=== PATIENT | female | born 1945 | race Caucasian/White ===

== ENCOUNTER 2016-12-04 18:56 | Emergency (ER) | payer MEDICARE ==
[2016-12-04] MEDS ORDERED: methylPREDNISolone 125 MG* 2 ML VIAL IV ONE (19:34)
[2016-12-04] MEDS ORDERED: Famotidine IV* 10 MG/ML 2 ML (20 mg) IV SLOW PU ONE (19:34)
[2016-12-04] MEDS ORDERED: NS 0.9% 1000 ML* 1,000 ML IV ONE (19:36)
[2016-12-04] MEDS ORDERED: EPINEPHrine AMP 1 MG/ML SUBCUT ONE (20:28)
[2016-12-04 21:47] LABS: Hematocrit 41 % (35-47); Hemoglobin 14.1 g/dl (12.0-16.0); Mean Corpuscular HGB Conc 34 g/dl (31-36); Mean Corpuscular Hemoglobin 30 pg (27-31); Mean Corpuscular Volume 88 fL (80-97); Mean Platelet Volume 9 um3 (7.4-10.4); Red Blood Count 4.68 10^6/ul (4.0-5.4); Red Cell Distribution Width 13 % (10.5-15); White Blood Count 10.6 10^3/ul (3.5-10.8)
[2016-12-04 21:50] LABS: Add Diff/Slide Review? Slide Review Added; Comments Flag Yes
--- NOTE | 2016-12-04 21:57 | ED ---
Vania Claire Thomas, scribed for Ofelia Mcbride MD on 12/04/16 at 1931 . Allergic Reaction/Systemic - HPI Summary HPI Summary: The pt is a 71 y/o F BIB EMS c/o an allergic reaction s/p being stung by a bee to her left lorew flank today at 17:30. Per EMS, she took two Epi-Pens prior to arrival and was given an additional one by EMS. She also two two Benadryl pills of unknown dosage and was given Benadryl 50mg by EMS. She was also given dexamethasone and Duo-Neb by EMS. Pt additionally c/o weakness and urticaria to the bee sting area. Pt denies throat tightening. PMHx: GERD, bee allergy. SHx: no smoking, no alcohol use. - History of Current Complaint Chief Complaint: EDAllergicReaction Hx Obtained From: Patient, EMS Onset/Duration: Sudden Onset, Started minutes ago - today at 17:30 Timing: Constant Pain Intensity: 0 Pain Scale Used: 0-10 Numeric Aggravating Factor(s): Nothing Alleviating Factor(s): OTC Meds, Antihistamines, Epinephrine Associated Signs And Symptoms: Negative: Syncope, Throat Tightening - Allergies/Home Medications Allergies/Adverse Reactions: Allergies Allergy/AdvReac Type Severity Reaction Status Date / Time Acetaminophen [From Percocet] Allergy Vomiting Verified 12/20/13 17:54 Bee Venom Allergy Hives Verified 12/20/13 17:54 Oxycodone [From Percocet] Allergy Vomiting Verified 12/20/13 17:54 PMH/Surg Hx/FS Hx/Imm Hx Previously Healthy: No Endocrine/Hematology History: Denies: Hx Diabetes, Hx Thyroid Disease, Hx Anemia Cardiovascular History: Reports: Hx Hypertension Denies: Hx Pacemaker/ICD Respiratory History: Denies: Hx Asthma, Hx Chronic Obstructive Pulmonary Disease (COPD) GI History: Denies: Hx Jaundice, Hx Ulcer Musculoskeletal History: Reports: Hx Osteoporosis Sensory History: Denies: Hx Hearing Aid Psychiatric History: Denies: Hx Panic Disorder - Cancer History Hx Chemotherapy: No Hx Radiation Therapy: No - Surgical History Surgery Procedure, Year, and Place: 04/13/2006 LT BREAST EXCISIONAL BX BENIGN. RT KNEE - REPAIR - CARTILAGE. GALLBLADDER REMOVED Infectious Disease History: No Infectious Disease History: Denies: Hx Hepatitis, Hx Human Immunodeficiency Virus (HIV), Traveled Outside the [place] in Last 30 Days - Family History Known Family History: Positive: Cardiac Disease - Social History Alcohol Use: Rare Substance Use Type: Reports: None Smoking Status (MU): Never Smoked Tobacco Review of Systems Positive: Other - POS: allergic reaction to bee sting. Negative: Fever Negative: Other - NEG: throat tightening Positive: Other - POS: urticarial area to left loewr flank that is 3cm. Positive: Weakness All Other Systems Reviewed And Are Negative: Yes Physical Exam Triage Information Reviewed: Yes Vital Signs On Initial Exam: Initial Vitals Temp Pulse Resp BP Pulse Ox 97.8 F 109 16 186/91 100 12/04/16 19:00 12/04/16 19:00 12/04/16 19:00 12/04/16 19:00 12/04/16 19:00 Vital Signs Reviewed: Yes Appearance: Positive: Well-Appearing, No Pain Distress Skin: Positive: Warm, Skin Color Reflects Adequate Perfusion, Other - She has urticaria to her left lower flank that measures 3cm Eyes: Positive: EOMI, VELMA ENT: Positive: Pharynx normal, TMs normal Neck: Positive: Supple, Nontender Respiratory/Lung Sounds: Positive: Clear to Auscultation, Breath Sounds Present. Negative: Rales, Rhonchi, Wheezes Cardiovascular: Positive: RRR. Negative: Murmur, Rub, Other - NEG: gallop Abdomen Description: Positive: Nontender, Soft. Negative: Distended, Guarding, Other: - NEG: rebound Bowel Sounds: Positive: Present Musculoskeletal: Positive: Strength/ROM Intact. Negative: Edema Left, Edema Right Neurological: Positive: Sensory/Motor Intact, Alert, Oriented to Person Place, Time, CN Intact II-III Psychiatric: Positive: Affect/Mood Appropriate Diagnostics - Vital Signs Vital Signs Temp Pulse Resp BP Pulse Ox 12/04/16 19:07 103 16 99 12/04/16 19:00 97.8 F 109 16 186/91 100 - Laboratory Lab Results: Lab Results 12/04/16 Range/Units 21:39 WBC 10.6 (3.5-10.8) 10^3/ul RBC 4.68 (4.0-5.4) 10^6/ul Hgb 14.1 (12.0-16.0) g/dl Hct 41 (35-47) % MCV 88 (80-97) fL MCH 30 (27-31) pg MCHC 34 (31-36) g/dl RDW 13 (10.5-15) % Plt Count 164 (150-450) 10^3/ul MPV 9 (7.4-10.4) um3 Neut % (Auto) 86.6 H (38-83) % Lymph % (Auto) 10.6 L (25-47) % Mcculloch % (Auto) 2.4 (1-9) % Eos % (Auto) 0.1 (0-6) % Baso % (Auto) 0.3 (0-2) % Absolute Neuts (auto) 9.2 H (1.5-7.7) 10^3/ul Absolute Lymphs (auto) 1.1 (1.0-4.8) 10^3/ul Absolute Monos (auto) 0.3 (0-0.8) 10^3/ul Absolute Eos (auto) 0 (0-0.6) 10^3/ul Absolute Basos (auto) 0 (0-0.2) 10^3/ul Absolute Nucleated RBC 0.01 10^3/ul Nucleated RBC % 0.1 Result Diagrams: 12/04/16 21:39 Lab Statement: Any lab studies that have been ordered have been reviewed, and results considered in the medical decision making process. - EKG 21:04 Cardiac Rate: NL - 102 BPM EKG Interpretation: ST Anterolateral cues. These are not new. Diffuse Q waves EKG Comparison: Other - Unchanged from 04/11/09. Re-Evaluation - Re-Evaluation First Eval Re-Evaluation Time: 20:00 Change: Worse Comment: The patient is having difficulty swallowing. Her tongue is a bit thicker. She requires another dose of Epi. Allergic Reaction Course/Dx - Course Course Of Treatment: 71 yo female who required 3 doses of epi (2 of her own and one from the paramedics) for anaphylaxis from a bee sting. She reported after an hour of being here difficulty swallowing and a 4th dose was given, case was discussed with Dr. Coppola and pt was to be brought in for observation - Diagnoses Provider Diagnoses: Anaphylactic reaction - Provider Notifications Discussed Care Of Patient With: Leighton Coppola Time Discussed With Above Provider: 21:00 Instructed by Provider To: Other - I consulted with Dr. Chanko, addiction professional, who will admit the patient. Discharge - Discharge Plan Condition: Fair Disposition: ADMITTED TO [facility] Prescriptions: Epinephrine [Epipen 2-Ismael] 0.3 mg IM ONCE PRN #1 inj PRN Reason: Allergy Symptoms predniSONE TAB* [Deltasone TAB*] 50 mg PO DAILY #4 tab Referrals: Jeniffer Crews MD [Primary Care Provider] - The documentation as recorded by the Vania plummer Thomas accurately reflects the service I personally performed and the decisions made by me, Ofelia Mcbride MD.
[2016-12-04 22:04] LABS: Albumin 4.3 g/dL (3.2-5.2); BUN/Creatinine Ratio 20.6 (8-20); Calcium 9.2 mg/dL (8.6-10.3); EGFR African American 120.1 (>60); EGFR Non-African American 93.4 (>60); Globulin 2.8 g/dL (2-4); Potassium 3.1 mmol/L (3.5-5.0); Total Bilirubin 0.5 mg/dL (0.2-1.0); Total Protein 7.1 g/dL (6.4-8.9)
[2016-12-04 22:53] VITALS: BP 127/74
--- NOTE | 2016-12-05 01:41 | CONS ---
CC: Dr. Crews; Dr. Mcclain, [facility] * MEDICINE CONSULTATION REPORT: DATE OF CONSULT: 12/04/16 - EMERGENCY DEPT PRIMARY CARE PROVIDER: Dr. Crews. REQUESTING PROVIDER: Dr. Ofelia Mcbride. PROVIDER: Raquel Apodaca NP ATTENDING PHYSICIAN: Dr. Leighton Coppola (as dictated by Raquel Apodaca NP). REASON FOR CONSULTATION: Evaluation for admission. HISTORY OF PRESENT ILLNESS: Ms. Edouard is a 71-year-old female who was in good health up until today when the patient felt a bee crawl under her shirt and sting her. She was stung on the left abdomen. She reports longstanding history of BEE STING allergies with severe reaction. She is currently undergoing desensitization with her door glass installer, Dr. Mcclain, and is . Following the bee sting, the patient gave herself epi via the pen and stated that she felt better. She also took some children's Benadryl. After a short time, she started to feel worse again and gave herself a second EpiPen shot and called EMS services. They brought her to the hospital. She has received a total dose of 4 epi shots as well as famotidine and Solu-Medrol. The patient has been stable on telemetry, although is mildly tachycardic secondary to the EpiPen injections. She denies any pain, respiratory distress. There is no audible wheezing, or stridor. She feels better. PAST MEDICAL HISTORY: Includes hypertension, osteoarthritis. PAST SURGICAL HISTORY: Includes cholecystectomy, left breast cyst removal, right knee washout, and right wrist cyst removal. HOME MEDICATIONS: Include valsartan, but the patient is unsure of dose. ALLERGIES: Include ACETAMINOPHEN, BEE VENOM, and OXYCODONE. FAMILY HISTORY: Reviewed and noncontributory. SOCIAL HISTORY: The patient reports rare alcohol use and denies any history of tobacco or illicit drug use. 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 She is . Her , Kin Edouard, is her emergency contact, but she would like to list her friend, Christa Aguilar, as her surrogate decision maker, and she can be reached at . REVIEW OF SYSTEMS: As per HPI, otherwise all those not mentioned are negative. PHYSICAL EXAM: General: Ms. Edouard is a well-developed, well-nourished female , who is sitting up in the ED stretcher, in no acute distress. Vital Signs: Temperature 97.8, heart rate 106, respiratory rate 18, blood pressure 127/74, and O2 saturation is 96% on room air. HEENT: Head is atraumatic, normocephalic. Face is symmetrical. Pupils are equal, round, and reactive to light. Extraocular movements are intact. Oral mucosa appears moist. There is no oropharyngeal erythema. Neck is supple. No lymphadenopathy appreciated. No stridor noted. Cardiac: S1 and S2 heart sounds. Regular rate and rhythm. Rate is mildly tachycardic. No peripheral edema noted. No murmurs, rubs, or gallops noted. Respiratory: Lungs are clear to auscultation. There is no accessory muscle use. Abdomen is soft, nontender, nondistended. Bowel sounds are present. Musculoskeletal: The patient moves all extremities and has full range of motion to all extremities. No clubbing or cyanosis noted. Skin: The site of the bee sting shows a small puncture wound with no surrounding wheels or erythema. No rashes noted. The patient's skin is warm, dry. Neuro: Cranial nerves II through XII are grossly intact. Sensation is intact to light touch to upper and lower extremities. The patient moves all extremities. Psych : She is alert and oriented x3. Affect is appropriate. ASSESSMENT AND PLAN: Ms. Edouard is a 71-year-old female who is status post bee sting with allergic reaction. She has received epi, Solu-Medrol, Pepcid with good effect. RECOMMENDATIONS: Ms. Edouard was offered further observation overnight for further monitoring of her symptoms and to monitor for return of symptoms following administration of EpiPen. The patient states that she is feeling fine and declines to have any further monitoring. She would like to go home now. The patient was recommended to stay perhaps for an additional hour to make sure that her symptoms do not return. If that is the case, the patient would be brought in under observation status for further monitoring and treatment. She may benefit from additional steroids. Currently, she appears comfortable. She is not in any acute distress and I did not see any signs of urticaria to the patient's abdomen and surrounding skin where she was stung. Case was discussed with the ER attending physician, who agrees to further monitor the patient and discharge her to home. Again, if any further assistance, please feel free to contact us. Thank you for this consultation. TIME SPENT: Approximately 45 minutes were spent in consultation for this patient. RAQUEL APODACA NP [id number]/GÉNESIS #: [id number] REMIGIO
== END 2016-12-04 23:37 | disposition short-term general hospital (02) ==
LOC: ED 18:56
DX: T78.2XXA Anaphylactic shock, unspecified, initial encounter (principal)
CPT/HCPCS: 36415; 80053; 84484; 85025; 93005; 96374; 96375; 99284; J0171; J2930

== ENCOUNTER 2018-10-31 15:55 | Emergency (ER) | payer MEDICARE ==
--- NOTE | 2018-10-31 16:02 | ED ---
Allergic Reaction/Systemic - HPI Summary HPI Summary: This patient is a 73 year old female presenting to [facility] with a chief complaint of allergeic reaction to bee venom protein. The patient was stung by a bee one hour BLADE FILER and began to experience difficulty speaking, throat tightening, and light-headedness. She says she normally experiences orthostatic sycope in this situation but received EMS treatment before this could occur. EMS administered 3 epipens, 50 mg benadryl and 10 mg decadron BLADE FILER. - History of Current Complaint Hx Obtained From: Patient Onset/Duration: Sudden Onset Timing: Lasting Hours Alleviating Factor(s): Antihistamines, Epinephrine Associated Signs And Symptoms: Positive: Hoarseness, Lightheadedness, Throat Tightening - Allergies/Home Medications Allergies/Adverse Reactions: Allergies Allergy/AdvReac Type Severity Reaction Status Date / Time bee venom protein (honey bee) Allergy Hives Verified 12/07/17 08:44 oxycodone [From Percocet] Allergy Vomiting Verified 12/09/17 08:35 PMH/Surg Hx/FS Hx/Imm Hx Endocrine/Hematology History: Denies: Hx Diabetes, Hx Thyroid Disease, Hx Anemia Cardiovascular History: Reports: Hx Hypertension Denies: Hx Pacemaker/ICD Respiratory History: Denies: Hx Asthma, Hx Chronic Obstructive Pulmonary Disease (COPD) GI History: Reports: Hx Gall Bladder Disease - GALLBLADDER STONES, GALLBLADDER REMOVED PER FAMILY Denies: Hx Jaundice, Hx Ulcer Musculoskeletal History: Reports: Hx Arthritis, Hx Osteoporosis Comment Only: Other Musculoskeletal History - KNEE SURGERY PER FAMILY APPROX. 10 YRS AGO Sensory History: Reports: Hx Contacts or Glasses - reading glasses Denies: Hx Hearing Aid Opthamlomology History: Reports: Hx Contacts or Glasses - reading glasses Neurological History: Comment Only: Other Neuro Impairments/Disorders - TEMPORARY AMNESIA PER PT.' S APPROX. 10 YRS AGO Psychiatric History: Denies: Hx Panic Disorder - Cancer History Hx Chemotherapy: No Hx Radiation Therapy: No - Surgical History Surgery Procedure, Year, and Place: 04/13/2006 LT BREAST EXCISIONAL BX BENIGN. RT KNEE - REPAIR - CARTILAGE. GALLBLADDER REMOVED Hx Anesthesia Reactions: No Infectious Disease History: Denies: Hx Hepatitis, Hx Human Immunodeficiency Virus (HIV) - Family History Known Family History: Positive: Cardiac Disease - Social History Alcohol Use: Rare Hx Substance Use: No Substance Use Type: Reports: None Hx Tobacco Use: No Smoking Status (MU): Never Smoked Tobacco Review of Systems Positive: Sore Throat - Throat tightening, difficulty speaking/horseness Neurological: Other - Light-headedness All Other Systems Reviewed And Are Negative: Yes Physical Exam - Summary Physical Exam Summary: Appearance: Well appearing, no pain distress Skin: warm, dry, reflects adequate perfusion Head/face: normal Eyes: EOMI, VELMA ENT: normal Neck: supple, non-tender Respiratory: CTA, breath sounds present Cardiovascular: RRR, pulses symmetrical Abdomen: non-tender, soft Musculoskeletal: normal, strength/ROM intact Neuro: normal, sensory motor intact, A&Ox3 Triage Information Reviewed: Yes Vital Signs On Initial Exam: Temp Pulse Resp BP Pulse Ox 98.5 F 105 20 123/63 100 10/31/18 15:56 10/31/18 17:56 10/31/18 16:04 10/31/18 17:56 10/31/18 17:56 Vital Signs Reviewed: Yes Allergic Reaction Course/Dx - Course Course Of Treatment: This patient is a 73 year old female presenting to [facility] with a chief complaint of allergeic reaction to bee venom protein. Patient received the necessary treatment by EMS BLADE FILER and she was kept here for observation. Patient has been stable and she is ready to go home. A plan for discharge was discussed with the patient and she was agreeable with this plan. - Diagnoses Provider Diagnoses: Allergic reaction Discharge - Sign-Out/Discharge Documenting (check all that apply): Patient Departure - Discharge Patient Received Moderate/Deep Sedation with Procedure: No - Discharge Plan Condition: Stable Disposition: HOME Patient Education Materials: General Allergic Reaction (ED) Referrals: Jeniffer Crews MD [Primary Care Provider] - 3 Days Additional Instructions: Follow up with your primary care provider in 3 days. - Attestation Statements Document Initiated by Scribe: Yes Documenting Scribe: Jarred Grace Provider For Whom Familiaibquan is Documenting (Include Credential): Ammon Glasgow MD Scribe Attestation: Jarred Claire scribed for Ammon Glasgow MD on 10/31/18 at 1815. Status of Scribe Document: Ready
[2018-10-31] MEDS ORDERED: NS 0.9% 1000 ML** 1,000 ML IV ONE (17:46)
[2018-10-31 17:58] VITALS: BP 123/63
== END 2018-10-31 18:19 | disposition home or self-care (01) ==
LOC: ED 15:55
DX: T63.441A Toxic effect of venom of bees, accidental (unintentional), initial encounter (principal); R42 Dizziness and giddiness; R49.0 Dysphonia; Y92.9 Unspecified place or not applicable; I10 Essential (primary) hypertension; Z88.5 Allergy status to narcotic agent; Z91.030 Bee allergy status
CPT/HCPCS: 96360; 99283

== ENCOUNTER 2019-06-09 05:30 | Observation (INO) | payer MEDICARE ==
--- OUTSIDE RECORDS SUMMARY | 2019-06-09 05:40 | XMS REPORT | Continuity of Care Document ---
:1945 External Reference #:[id number] Author Name DESMOND Best-Cde (transmitted by agent of provider Jennifer Rhodes) Address [address] [place] [address], [place] [address] Care Team Providers Name Role Phone Jeniffer Crews MD - Internal Care Team Information Lock Tender Medicine Problems Active Problems Provider Date Chest pain Jeramy Marquis M.D., [facility] Onset: 02/06/2014 Aortic valve disorder Jeramy Marquis M.D., [facility] Onset: 04/01/2017 Difficulty breathing Jeramy Marquis M.D., [facility] Onset: 02/16/2019 Electrocardiogram abnormal Jeramy Marquis M.D., [facility] Onset: 2018 Convalescence after surgery Best Townsend M.D. 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 Allergies, Adverse Reactions, Alerts Active Allergies Reaction Severity Comments Date Percocet SEVERE VOMITING 03/08/2012 Codeine 02/06/2014 Bee Sting 02/06/2014 Inactive Allergies NKDA 01/14/2007 Medications Active Medications SIG Qnty Indications Ordering Provider Date Aspirin Ec Low Dose 1 by mouth 90tabs Jeramy Marquis, 02/16/2019 81mg every day M.DMaria De Jesus, [facility] Tablets DR Calcium + Vitamin D3 2 by mouth Unknown every day [id number] Chewtabs Valsartan-Hydrochlorot 1 by mouth 90tabs Unknown hiazide every day 80-12.5mg Tablets Medications Administered in Office Medication SIG Qnty Indications Ordering Provider Date Technetium TC 99M Jeramy Marquis M.D., 03/13/2014 Tetrofosmin, Per Unit Dose FAC, FASNC Up To 40 Millicuries Injection Depomedrol 40MG Gopal Zuniga, 08/13/2009 Injection R.S.A.-O Immunizations CPT Code Status Date Vaccine Lot # [id number] Given 03/20/2009 Tdap - Tetanus/Diptheria/Acellular Pertussis [id number] Given 09/16/2003 Td (History By Patient) Vital Signs Date Vital Result Comment 05/20/2019 9:12am Height 61 inches 5'1" Weight 140.50 lb Heart Rate 101 /min BP Systolic 132 mmHg BP Diastolic 83 mmHg O2 % BldC Oximetry 98 % BMI (Body Mass Index) 26.5 kg/m2 04/19/2019 9:02am Height 61 inches 5'1" Weight 144.75 lb Heart Rate 72 /min BP Systolic 126 mmHg BP Diastolic 70 mmHg Respiratory Rate 12 /min Body Temperature 98.6 F Pain Level 2 BMI (Body Mass Index) 27.3 kg/m2 Results Description No Information Available Procedures Date Code Description Status 05/02/2019 03189 Stress Test Completed 02/23/2019 38745 ECHO Transthoracic, Real-Time 2D With Doppler And Color Completed Flow 02/23/2019 58400 ECHO Transthoracic, Real-Time 2D With Doppler And Color Completed Flow 02/16/2019 36165 EKG Tracing & Interpretation Completed 08/04/2018 94143144 Mammogram Completed 12/11/2007 07696182 Colonoscopy Completed Medical Devices Description No Information Available Encounters Type Date Location Provider Dx Diagnosis Office Visit 04/19/2019 [facility] Boni F M75.41 Impingement 8:30a at Darrell Torres MD syndrome of right shoulder M75.42 Impingement syndrome of left shoulder M75.51 Bursitis of right shoulder M75.52 Bursitis of left shoulder S46.011A Strain of musc/tend the rotator cuff of right shoulder, init S46.012A Strain of musc/tend the rotator cuff of left shoulder, init M25.552 Pain in left hip M25.551 Pain in right hip Office Visit 02/16/2019 [facility] R94.31 Abnormal 11:30a [facility] Marquis, electrocardiogram Advanced [facility] Professional FAC, [facility] [ECG] [EKG] R06.00 Dyspnea, unspecified Assessments Date Code Description Provider 05/20/2019 Z01.419 Encounter for gynecological Dara Mendoza [employer] examination (general) (routine) without abnormal findings 05/20/2019 Z12.11 Encounter for screening for malignant Dara Mendoza, [employer] neoplasm of colon 05/20/2019 N95.9 Unspecified menopausal and Dara Mendoza, [employer] perimenopausal disorder 05/02/2019 R06.00 Dyspnea, unspecified Jeramy Marquis M.D., [facility], [facility] 05/02/2019 R94.31 Abnormal electrocardiogram [ECG] Jeramy Marquis M.D., [EKG] [facility], [facility] 04/19/2019 M75.41 Impingement syndrome of right Boni Torres MD shoulder 04/19/2019 M75.42 Impingement syndrome of left shoulder Boni Torres MD 04/19/2019 M75.51 Bursitis of right shoulder Boni Torres MD 04/19/2019 M75.52 Bursitis of left shoulder Boni Torres MD 04/19/2019 S46.011A Strain of muscle(s) and tendon(s) of Boni Torres MD the rotator cuff of right shoulder, initial encounter 04/19/2019 S46.012A Strain of muscle(s) and tendon(s) of Boni Torres MD the rotator cuff of left shoulder, initial encounter 04/19/2019 M25.552 Pain in left hip Boni Torres MD 04/19/2019 M25.551 Pain in right hip Boni Torres MD 02/23/2019 R06.00 Dyspnea, unspecified Jeramy Marquis M.D., [facility], [facility] 02/23/2019 R06.00 Dyspnea, unspecified Traveling ECHO 1 02/16/2019 R94.31 Abnormal electrocardiogram [ECG] Jeramy Marquis M.D., [EKG] [facility], [facility] 02/16/2019 R06.00 Dyspnea, unspecified Jeramy Marquis M.D., [facility], [facility] Plan of Treatment Future Appointment(s):07/18/2019 1:00 pm - Jeramy Marquis M.D., [facility]06/06/2019 10:15 am - Jeramy Marquis M.D., [facility]06/07/2019 8:30 am - Boni Torres MD at [facility] at F[facility]ba9205/20/2019 - Dara Mendoza [facility]-CdeZ01.419 Encounter for gynecological examination (general) (routine) without abnormal findingsComments:We still recommend coming for a yearly exam even when a pap smear isn't done. For bone health, therecommended amount of calcium is 1200 mg /day. You might benefit from a supplement such as Citracal Petites to make this requirement Including a strength training component in your exercise routine isalso important for maintaining bone health and muscle strength.Z12.11 Encounter for screening for malignant neoplasm of colonReferral:Killian Norman MD, OquofpbqwqzpqjdkO02.9 Unspecified menopausal and perimenopausal disorderNew Xrays:Dexa Bone Study, Ordered: 05/20/19 Functional Status Description No Information Available Mental Status Description No Information Available Referrals Refer to Reason for Referral Status Appt Date Killian Norman MD screening colonoscopy Created [address] [place] [address] [phone]
--- NOTE | 2019-06-09 06:05 | ED ---
HPI Chest Pain - HPI Summary HPI Summary: Patient is a 73 y/o F arriving via ambulance to [facility] with a chief complaint of sudden onset chest pain beginning at 0330. She reports that on the night of 2019, she felt sudden sharp pain in the left chest pain radiating into the left arm that lasted for about two hours before subsiding on its own. She spoke with her physical medicine physician, Dr. Marquis, who recommended she come to the ED if the symptoms return. This morning around 0330, she developed the same pain in the left chest radiating into the arm and jaw, described as a burning sensation. The pain was rated 8/10 at its worst but only 1/10 now after her symptoms improved with 1 NTG en route. She notes a recent trip to the [facility] with an episode of arm tingling during her trip that subsided. She follows with her physical medicine physician for irregular EKG without nuclear stress test due to insurance issues. PMHx: neck surgery, cholecystectomy, cervical epidural hematoma. FHx: NV in brother age 64. Nonsmoker, rare EtOH, no substance use. Medications reviewed. Allergies noted. - History of Current Complaint Chief Complaint: EDChestPainROMI Time Seen by Provider: 06/09/19 05:43 Hx Obtained From: Patient Onset/Duration: Resolved Time of Onset: 03:30 Timing: Constant Initial Severity: Severe Current Severity: Mild Pain Intensity: 1 Pain Scale Used: 0-10 Numeric Chest Pain Location: Left Anterior Chest Pain Radiates: Yes Chest Pain Radiates To:: Arm, Jaw Character: Burning Aggravating Factor(s): Nothing Alleviating Factor(s): NTG 123 - 1 Associated Signs and Symptoms: Positive: Chest Pain - Additional Pertinent History Primary Care Physician: [id number] - Allergy/Home Medications Allergies/Adverse Reactions: Allergies Allergy/AdvReac Type Severity Reaction Status Date / Time bee venom protein (honey bee) Allergy Hives Verified 12/07/17 08:44 oxycodone [From Percocet] Allergy Vomiting Verified 12/09/17 08:35 Home Medications: Home Medications EPINEPHrine [Epipen 2-Ismael] 0.3 mg IM ONCE PRN #1 inj 12/04/16 [Rx Confirmed 08/23] Aspirin [Ecotrin] 81 mg PO DAILY 06/09/19 [History Confirmed 06/09/19] Calcium Carbonate/Vitamin D3 [Calcium 600 + Vit D Tablet] 1 tab PO DAILY [History Confirmed 06/09/19] Valsartan/HCTZ 80/12.5(NF) [Diovan Hct 80/12.5(NF)] 1 tab PO DAILY 06/09/19 [ History Confirmed 06/09/19] PMH/Surg Hx/FS Hx/Imm Hx Endocrine/Hematology History: Denies: Hx Diabetes, Hx Thyroid Disease, Hx Anemia Cardiovascular History: Reports: Hx Hypertension Denies: Hx Pacemaker/ICD Respiratory History: Denies: Hx Asthma, Hx Chronic Obstructive Pulmonary Disease (COPD) GI History: Reports: Hx Gall Bladder Disease - GALLBLADDER STONES, GALLBLADDER REMOVED PER FAMILY Denies: Hx Jaundice, Hx Ulcer Musculoskeletal History: Reports: Hx Arthritis, Hx Osteoporosis Comment Only: Other Musculoskeletal History - KNEE SURGERY PER FAMILY APPROX. 10 YRS AGO Sensory History: Reports: Hx Contacts or Glasses - reading glasses Denies: Hx Hearing Aid Opthamlomology History: Reports: Hx Contacts or Glasses - reading glasses Neurological History: Comment Only: Other Neuro Impairments/Disorders - TEMPORARY AMNESIA PER PT.' S APPROX. 10 YRS AGO Psychiatric History: Denies: Hx Panic Disorder - Cancer History Hx Chemotherapy: No Hx Radiation Therapy: No - Surgical History Surgical History: Yes Surgery Procedure, Year, and Place: 04/13/2006 LT BREAST EXCISIONAL BX BENIGN. RT KNEE - REPAIR - CARTILAGE. GALLBLADDER REMOVED Hx Anesthesia Reactions: No Infectious Disease History: Yes Infectious Disease History: Reports: Traveled Outside the [place] in Last 30 Days - [place] Denies: Hx Hepatitis, Hx Human Immunodeficiency Virus (HIV) - Family History Known Family History: Positive: Cardiac Disease - NV brother age 64 - Social History Alcohol Use: Rare Hx Substance Use: No Substance Use Type: Reports: None Hx Tobacco Use: No Smoking Status (MU): Never Smoked Tobacco - Additional Comments History Additional Comments: HTN, cervical epidural hematoma Review of Systems - ROS Summary Review of Systems Summary: Home Medications Medication Instructions Recorded Confirmed Type EPINEPHrine [Epipen 2-Ismael] 0.3 mg IM ONCE PRN #1 inj 12/04/16 06/09/19 Rx Aspirin [Ecotrin] 81 mg PO DAILY 06/09/19 06/09/19 History Calcium Carbonate/Vitamin D3 1 tab PO DAILY 06/09/19 06/09/19 History [Calcium 600 + Vit D Tablet] Valsartan/HCTZ 80/12.5(NF) [Diovan 1 tab PO DAILY 06/09/19 06/09/19 History Hct 80/12.5(NF)] Positive: Other - jaw pain radiating from chest Positive: Chest Pain - left, sharp, burning Positive: Myalgia - pain radiating from the left chest into right arm All Other Systems Reviewed And Are Negative: Yes Physical Exam - Summary Physical Exam Summary: General: Well-developed, Well-nourished elderly female. No acute distress. HEENT: Normocephalic, Atraumatic. Eyes: Conjuctiva normal, PERRL. Oropharynx: Clear, mucous membranes moist, (-) exudates. Neck: Soft, FROM, (-) lymphadenopathy, (-) thyromegaly, (-) JVD. Cardiovascular: Normal sinus rhythm, (-) murmur. Lungs: Clear to auscultation bilaterally (-) wheezes, (-) rales, (-) rhonchi. Abdomen: Soft, non-tender, non-distended, (-) organomegaly, normal bowel sounds. Back: (-) CVA tenderness Extremities: No edema. Skin: Warm, dry, (-) rash. Neuro: Alert and oriented x3, moves all extremities equally. No ataxia. No gait disturbance. No sensory deficit. Normal strength, normal sensation. Psychiatric: Mood normal, affect normal. Triage Information Reviewed: Yes Vital Signs On Initial Exam: Initial Vitals Temp Pulse Resp BP Pulse Ox 98.3 F 74 16 156/86 97 06/09/19 05:35 06/09/19 05:35 06/09/19 05:35 06/09/19 05:35 06/09/19 05:35 Vital Signs Reviewed: Yes Procedures - Sedation Patient Received Moderate/Deep Sedation with Procedure: No Diagnostics - Vital Signs Vital Signs Temp Pulse Resp BP Pulse Ox 06/09/19 05:46 76 24 132/83 97 06/09/19 05:35 98.3 F 74 16 156/86 97 - Laboratory Result Diagrams: 06/09/19 06:03 06/09/19 06:03 Lab Statement: Any lab studies that have been ordered have been reviewed, and results considered in the medical decision making process. - Radiology CXR Radiology Interpretation Completed By: ED Physician Summary of Radiographic Findings: No infiltrate. No pleural effusion. ED physician has reviewed and interpreted this report. Pending official read. - EKG 0533 Cardiac Rate: NL - 72 BPM EKG Rhythm: Sinus Rhythm Summary of EKG Findings: EKG at 0533 reveals normal sinus rhythm with rate of 72 BPM, no acute changes, no ischemic changes. This EKG was reviewed and interpreted by Dr. Liang. Chest Pain Course/Dx - Course Course Of Treatment: 73-year-old female presents from home by ambulance with chest pain. She was 3:30 this morning with left-sided chest pain. He also admits to some chest pain Thursday night which went away by itself after about 2 hours. She did take with her physical medicine physician yesterday who recommended she be seen immediately should that happen again. Tonight the chest pain came on and awoke her from sleep. Also went to her left neck and left shoulder. Nothing seems to make it better or worse. Unable to identify anything that makes it better or worse. Patient states she has a physical medicine physician for an irregular heart beat. Brother of a heart attack last year. Workup pending. Patient secondary changes shift awaiting troponin. Reassessment. Anticipate patient being admitted. - Diagnoses Provider Diagnoses: Chest pain Discharge ED - Sign-Out/Discharge Documenting (check all that apply): Sign-Out Patient Signing out patient TO: Masood Calderon - Patient is a sign-out to Dr. Masood Calderon MD, at change of shift at 0700 on 06/09/19, pending second troponin and disposition. - Discharge Plan Condition: Stable Disposition: ADMITTED TO [facility] - Billing Disposition and Condition Condition: STABLE Disposition: Admitted to [facility] - Attestation Statements Document Initiated by Corrye: Yes Documenting Scribe: Liat Doss Provider For Whom Adilene is Documenting (Include Credential): Hyacinth Liang MD Scribe Attestation: Liat Claire scribed for Hyacinth Liang MD on 06/13/19 at 2228. Scribe Documentation Reviewed: Yes Provider Attestation: The documentation as recorded by the Liat plummer accurately reflects the service I personally performed and the decisions made by me, Hyacinth Liang MD Status of Scribe Document: Viewed
[2019-06-09 06:19] LABS: Hematocrit 40 % (35-47); Hemoglobin 13.7 g/dL (12.0-16.0); Mean Corpuscular HGB Conc 35 g/dL (31-36); Mean Corpuscular Hemoglobin 31 pg (27-31); Mean Corpuscular Volume 89 fL (80-97); Mean Platelet Volume 9.2 fL (7.4-10.4); Platelet Count 168 10^3/uL (150-450); Red Blood Count 4.47 10^6 /uL (3.70-4.87); Red Cell Distribution Width 14 % (10-15); White Blood Count 5.5 10^3/uL (3.5-10.8)
[2019-06-09 06:29] LABS: INR 1.14 (0.82-1.09)
[2019-06-09 06:31] LABS: ABS Eosinophils 0.1 10^3/ul (0-0.6); ABS Lymphocytes 1.7 10^3/ul (1.0-4.8); ABS Monocytes 0.5 10^3/ul (0-0.8); ABS Neutrophils 3.1 10^3/ul (1.5-7.7); Eosinophil % 2.2 %; Lymphocyte % 30.9 %; Nucleated Red Blood Cells % 0.2
[2019-06-09 06:40] LABS: Albumin 4.2 g/dL (3.2-5.2); Albumin/Globulin Ratio 1.6 (1-3); BUN/Creatinine Ratio 24.2 (8-20); Calcium 9.8 mg/dL (8.6-10.3); EGFR African American 114.5 (>60); EGFR Non-African American 94.6 (>60); Globulin 2.6 g/dL (2-4); Potassium 3.7 mmol/L (3.5-5.0); Total Bilirubin 0.9 mg/dL (0.2-1.0); Total Protein 6.8 g/dL (6.4-8.9)
[2019-06-09 06:41] LABS: Troponin I 0.01 ng/mL (<0.03)
[2019-06-09] MEDS ORDERED: Aspirin 81 mg CHEW TAB* 81 MG TAB.CHEW PO ONE (07:00)
--- NOTE | 2019-06-09 07:08 | ED ---
Progress - Progress Note Progress Note: Patient is a sign out at 07:00 on 06/09/[address] Hyacinth Liang to Dr. Masood Calderon at shift change, pending repeat troponin, further workup, and disposition. At 07:16, Dr. Ada Sutherland reviewed the patients case and agrees to accept the patient to [facility] with a diagnosis of chest pain. Patient will be admitted to [facility] with a diagnosis of chest pain. - Results/Orders Results/Orders: On re-read of the EKG, patient has anterior and inferior QT waves that are unchanged when compared to an EKG in 2007. Course/Dx - Course Course Of Treatment: Patient is a sign out at 07:00 on 06/09/[address] Hyacinth Liang to Dr. Masood Calderon at shift change, pending repeat troponin, further workup, and disposition. On re-read of the EKG, patient has anterior and inferior QT waves that are unchanged when compared to an EKG in 2007. At 07:16 , Dr. Ada Sutherland reviewed the patients case and agrees to accept the patient to [facility] with a diagnosis of chest pain. I did not create a patient- physician relationship. I was simply helping the patient's admission from an administrative perspective. Workup was completed by the previous physician and I was asked to relay the information to the hospitalist. Patient will be admitted to [facility] with a diagnosis of chest pain. - Diagnoses Provider Diagnoses: Chest pain - Provider Notifications Discussed Care Of Patient With: Ada Sutherland - At 07:16, Dr. Ada Sutherland reviewed the patients case and agrees to accept the patient to [facility] with a diagnosis of chest pain. Time Discussed With Above Provider: 07:16 Instructed by Provider To: Admit As Inpatient Discharge ED - Sign-Out/Discharge Documenting (check all that apply): Patient Departure - Admit, Receiving Sign- Out Receiving patient FROM: Hyacinth Liang - Patient is a sign out at 07:[address] Hyacinth Liang to Dr. Masood Calderon at shift change, pending repeat troponin, further workup, and disposition. - Discharge Plan Condition: Stable Disposition: ADMITTED TO [facility] - Billing Disposition and Condition Condition: STABLE Disposition: Admitted to [facility] - Attestation Statements Document Initiated by Scribe: Yes Documenting Scribe: Reva Reid Provider For Whom Adilene is Documenting (Include Credential): Masood Calderon MD Scribe Attestation: I, Reva Reid, scribed for Masood Calderon MD on 06/09/19 at 1901. Scribe Documentation Reviewed: Yes Provider Attestation: The documentation as recorded by the Reva plummer accurately reflects the service I personally performed and the decisions made by me, Masood Calderon MD Status of Scribe Document: Viewed
[2019-06-09] MEDS ORDERED: Acetaminophen TAB* 325 MG PO PRN (08:58)
[2019-06-09] MEDS ORDERED: NS 0.9% 1000 ML** 1,000 ML IV SCH (09:00)
[2019-06-09] MEDS ORDERED: Valsartan/HCTZ 80/12.5(NF) TAB PO SCH (10:00)
[2019-06-09] MEDS: Hydrochlorothiazide TAB* 25 MG PO SCH (11:26)
[2019-06-09] MEDS: Valsartan TAB* 80 MG PO SCH (11:27)
--- NOTE | 2019-06-09 11:54 | HP ---
CC: Dr. Crews; Dr. Marquis* HISTORY AND PHYSICAL: DATE OF ADMISSION: 06/09/19 PRIMARY CARE PROVIDER: Dr. Crews. ASSEMBLER SURGICAL GARMENT: Dr. Marquis. CHIEF COMPLAINT: Chest pain. HISTORY OF PRESENT ILLNESS: Nesha Edouard is a 73-year-old female with history of hypertension, who presented to the hospital complaining of chest pain. The patient stated that she was at [facility] in [facility] a week ago and she came back last Thursday, which was 06/03/19. During her mission when she was sleeping she would notice that she would have in the middle of the night left-sided arm tingling. She stated that she continued on going throughout her day and she did not have any shortness of breath with it. She actually did not have a chest pain per se. That occurred for approximately few minutes and then disappeared. When she came back from [facility], 3 days later on Thursday which was 06/06/19, the patient had another episode of left arm tingling, this time it was radiating to her left shoulder, left neck and jaw. It was not associated with diaphoresis or shortness of breath. It lasted approximately 2 hours. She stated that when she got up and started moving it actually improved and disappeared after 2 hours. That was on Thursday. On Thursday on 06/07/19, she called Dr. Marquis's office. She was advised to come to the ED if her pain recurs. She also stated that on 05/02/19, the patient had a treadmill stress test, which was questionable and she was supposed to have a treadmill nuclear stress test, but it was denied by the insurance. In fact, her scheduled date for her Myoview stress test was on 06/05, but once again she was not able to take it since the insurance denied and they are in the process of appealing. Nevertheless, the patient stated that last night in the middle of the night she woke up once again with left-sided arm tingling and burning radiating to the left jaw. Not associated with shortness of breath or diaphoresis. It was improved when she stood up and disappeared by the time she came into the ED. She received aspirin. As per the patient's ED physician, the patient's HEART score is 4 to 5 and on the basis of that the patient was asked to be placed on observation for a stress test. PAST MEDICAL HISTORY: 1. Hypertension. 2. Gastroesophageal reflux disease. 3. History of post fall posterior neck hematoma with C-spine compression that was decompressed by Dr. Townsend in November of 2017. 4. Status post cholecystectomy. 5. History of knee arthroscopic surgery on the right side. 6. History of recent problems with left arm tingling, with stress test that was a treadmill test obtained in Dr. Marquis's office on 05/02/19 which showed "equivocal exam EKG due to induced EKG changes and lateral T-wave changes." At that point, nuclear cardiac stress test was recommended. It was originally ordered on 06/06/19, but the insurance denied. MEDICATIONS AT HOME: 1. Diovan/HCTZ 80/12.5 one tablet daily. 2. Aspirin 81 mg daily. 3. EpiPen on a p.r.n. basis. 4. Calcium carbonate 1 tablet daily. ALLERGIES: BEE STINGS, OXYCODONE. FAMILY HISTORY: Positive for brother with history of acute W[place] at the age of 64. After his [place], he was advised by his mint wafer depositor that he had a "congenital heart disease." The patient's father at the age of 87 secondary to dementia, mother at the age of 85 shortly after her 's after a hip surgery. SOCIAL HISTORY: The patient denies any tobacco, alcohol, or drug use. She lives alone after her 's recently in March of 2019. REVIEW OF SYSTEMS: Please see history of present illness. All the remaining 12 systems were reviewed with the patient and were otherwise negative. PHYSICAL EXAMINATION GENERAL: The patient is a very pleasant 73-year-old female, who is in no acute distress. The patient is alert and oriented x3. VITAL SIGNS: Blood pressure 140/92, heart rate of 73 and regular, respiratory rate 15, oxygen saturation 98% on room air, temperature of 98.3. HEENT: Head: Atraumatic, normocephalic. Eyes: Pupils are equal, reactive to light and accommodation. Oropharynx is clear. Mucosa moist. NECK: Supple. No JVD. No bruits bilaterally. RESPIRATORY: Clear to auscultation bilaterally. CARDIOVASCULAR: Regular rate and rhythm. No murmur. ABDOMEN: Soft, nontender. Bowel sounds are present in all 4 quadrants. EXTREMITIES: There is no edema. Pulses are +2 bilaterally. No clubbing or cyanosis. NEUROLOGIC: Speech is clear. Cranial nerves II through XII grossly intact. Motor strength is 5/5 bilaterally. SKIN: On evaluation of the skin, no ecchymotic areas or rashes noted. DIAGNOSTIC STUDIES/LAB DATA: Laboratory data showed INR of 1.14. White blood cell count of 5.5, hemoglobin of 13.7, hematocrit of 40, and platelets of 168. Sodium was 139, potassium 3.7, chloride 105, carbon dioxide 27, BUN 15, creatinine 0.62. Liver function tests unremarkable. Troponin of 0.01, second troponin of 0. Brain natriuretic peptide was 14. Portable chest x-ray, impression: "No active cardiopulmonary disease is noted. " The patient's EKG showed left anterior hemiblock with flattened and mildly negative T-wave in lead III and aVF. That is comparable with prior EKG from 2018. ASSESSMENT AND PLAN: 1. Somewhat nonspecific chest pain in a patient with negative cardiac workup and baseline abnormal EKG. As per the ED provider, the patient's HEART score was 4. She does have a brother with history of congenital heart disease and recent myocardial infarction at the age of 65. The patient is going to be placed on observation. She will have a cardiac stress test likely today. Daily aspirin is going to be provided. Her troponins so far had been negative. 2. For her hypertension, her Dyazide is going to be continued. 3. For DVT prophylaxis, the patient is going to be placed on heparin subcutaneously. 4. The patient's code status is full. Her surrogate is her son, Stoney Edouard. TIME SPENT: Approximately 65 minutes was spent on admission of this patient, more than half that time was spent [id number] with the patient during the interview and physical exam. [id number]/[facility] #: [id number] [facility]
[2019-06-09] MEDS: Heparin VIAL(*) 5000 UNITS/ML VIAL (FIVE THOUSAND) SUBCUT SCH (20:58)
[2019-06-10] MEDS: Heparin VIAL(*) 5000 UNITS/ML VIAL (FIVE THOUSAND) SUBCUT SCH (05:29)
[2019-06-10] MEDS ORDERED: Aspirin EC TAB* 81 MG TAB.EC PO SCH (09:00)
[2019-06-10 09:36] VITALS: BP 112/69
[2019-06-10] MEDS: Valsartan TAB* 80 MG PO SCH (10:01)
[2019-06-10] MEDS: Hydrochlorothiazide TAB* 25 MG PO SCH (10:01)
--- NOTE | 2019-06-10 22:19 | DS ---
CC: Dr. Crews; Dr. Akbar; Dr. Marquis; Dr. Torres * DISCHARGE SUMMARY: DATE OF ADMISSION: 06/09/19 DATE OF DISCHARGE: 06/10/19 PRIMARY CARE PROVIDER: Dr. Crews. DISPOSITION: Discharged home. CONDITION ON DISCHARGE: Stable. DISCHARGE DIAGNOSES: Paresthesias/tingling and pain in left upper extremity, also localized in the right shoulder and radiating to the chest with low probability cardiac stress test documented on 06/10/19. After the cardiac possibility was ruled out, the patient may have symptoms of radiculopathy. SECONDARY DIAGNOSES: 1. History of posterior cervical decompression due to cervical epidural hematoma performed in 2018. The hematoma was posttraumatic. 2. Hypertension. 3. Gastroesophageal reflux disease. 4. Status post cholecystectomy. 5. History of knee arthroscopic surgery. MEDICATIONS AT DISCHARGE: Include: 1. Diovan/hydrochlorothiazide 80/12.5 one tablet daily. 2. Aspirin 81 mg daily. 3. EpiPen on a p.r.n. basis. 4. Calcium carbonate 1 tablet daily. LABORATORY DATA AND STUDIES PERFORMED DURING THE HOSPITAL STAY: Included the patient's troponins continued to be 0.01 to 0 throughout her hospital stay. Her cardiac stress test documented today and nuclear portion was "no fixed or reversible perfusion defects. It was noted as low risk." At discharge, the patient recommended to follow with the primary care provider in 4 to 7 days. The patient also is asked to call Dr. Akbar' office and get a followup appointment when available to rule out possibility of radiculopathy radiating from her C-spine as the etiology of her symptoms. HOSPITALIZATION COURSE: Nesha Edouard is a 73-year-old female who has history of abnormal EKG and she had been under the care of Dr. Marquis in the past. She has had atypical chest pains in the past and has multiple stress tests in the past that were unremarkable. The patient had a treadmill stress test at Dr. Marquis's office on 05/02/19, which was equivocal. She was recommended to have an outpatient Myoview, but that was denied by her insurance. The stress test was originally scheduled on 06/06/19. On 06/09/19, she presented to the hospital, complaining of tingling and burning sensation in the left shoulder, left side of her neck radiating a little bit to the right shoulder and the left chest. It was not associated with diaphoresis. It occurred at night when she was asleep, woke her up from sleep, and it was better when she got up and with movement. There was no diaphoresis with it. The pain/burning sensation lasted at his maximum at approximately 2 hours and she has had those issues for the past week. She came into the ED for evaluation. Her EKG was baseline abnormal, especially changes in the inferior leads. She was placed on overnight observation and her stress test on 06/10/19 showed low risk of probability of ischemia. At this point, her burning sensation is resolved. We discussed with the patient the possibility of C-spine radiculopathy that may be cause of the symptoms. She is to follow up with her primary care provider about it, but due to her history of C- pine decompression from epidural hematoma she could follow up with Dr. Akbar since she has already established with his office and I asked her to call Dr. Akbar' office and make an appointment. PHYSICAL EXAMINATION: At the time of discharge, blood pressure 112/69, heart rate 81 and regular, respiratory rate 14, oxygen saturation 99% on room air, temperature 98.3. General: The patient is a very pleasant 73-year-old female who is in no acute distress. The patient is alert and oriented x3. HEENT: Head: Atraumatic, normocephalic. Eyes: Pupils are equal, reactive to light and accommodation. Oropharynx is clear. Mucosa moist. Neck: Supple. No JVD. No bruits bilaterally. Cardiovascular: Regular rate and rhythm. No murmur. Respiratory: Clear to auscultation bilaterally. Abdomen: Soft, nontender. Bowel sounds are present in all 4 quadrants. Extremities: There is no edema. Pulses are 2+ bilaterally. No clubbing or cyanosis. On neuro evaluation, speech is clear. Cranial nerves II through XII grossly intact. Motor strength is 5/5 bilaterally. Please note that this is a short summary of the patient's hospital stay. Please refer to further medical records for details. TIME SPENT: Approximately 45 minutes was spent on the patient's discharge. [id number]/[facility] #: [id number] MTDTati
== END 2019-06-10 11:50 | disposition home or self-care (01) ==
LOC: ED 05:30 → MEDTELE 07:49
PROVIDERS: ADMIT Internal Medicine; ATTEND Internal Medicine
DX: R20.2 Paresthesia of skin (principal); M79.602 Pain in left arm; R07.9 Chest pain, unspecified; I10 Essential (primary) hypertension; K21.9 Gastro-esophageal reflux disease without esophagitis; K91.5 Postcholecystectomy syndrome; R94.31 Abnormal electrocardiogram [ECG] [EKG]; Z79.82 Long term (current) use of aspirin; Z79.899 Other long term (current) drug therapy; Z82.49 Family history of ischemic heart disease and other diseases of the circulatory system
CPT/HCPCS: 36415; 71045; 78452; 80053; 83605; 83880; 84484; 85025; 85379; 85610; 93005; 93017; 96372; 99284; A9270-GY; A9502; G0378; J1644

== ENCOUNTER 2021-06-06 11:54 | Inpatient (IN) ==
[~2021-06-06 11:54] MED LIST: Buffered Lidocaine 1% SYRIN 1 ml INTRADERM ONE; Famotidine IV 10 MG/ML 2 ml VIAL (20 mg) IV ONE; Lactated Ringers 1000 ml BAG 1,000 ML IV SCH; Midazolam 2 mg/2 ml VIAL 1 mg/ml 2 ml VIAL (2 mg) ONE
[2021-06-06] MEDS ORDERED: Famotidine IV 10 MG/ML 2 ml VIAL (20 mg) ONE (12:27)
[2021-06-06] MEDS ORDERED: ceFAZolin 2 GM PREMIX 2 GM/50 ML BAG ONE (12:27)
[2021-06-06] MEDS ORDERED: Propofol 10 MG/ML 20 ML BTL ONE (13:08)
[2021-06-06] MEDS ORDERED: Lidocaine 2% PF 5 ML VIAL ONE (14:01)
[2021-06-06] MEDS ORDERED: fentaNYL 100 mcg/2 ml 50 MCG/ML VIAL ONE (14:01)
[2021-06-06] MEDS ORDERED: ROPIVACAINE 5 MG/ML 30 ML BTL (0.5%) ONE (14:01)
[2021-06-06] MEDS ORDERED: Midazolam 5 mg/5 ml VIAL 1 mg/ml 5 ml VIAL (5 mg) ONE (14:01)
[2021-06-06] MEDS ORDERED: Ondansetron 4 mg VIAL 2 MG/ML 2 ml VIAL IV PRN ×2 (14:49→15:49)
[2021-06-06] MEDS ORDERED: fentaNYL 100 mcg/2 ml 50 MCG/ML VIAL IV PRN (14:49)
[2021-06-06] MEDS ORDERED: HYDROmorphone 1 MG/1 ML SYRINGE IV PRN (14:49)
[2021-06-06] MEDS ORDERED: Naloxone 0.4 mg VIAL 0.4 mg/ml 1 ml VIAL IV PRN (14:49)
[2021-06-06] MEDS ORDERED: Ropivacaine 5 MG/ML 20 ML VIAL 0.5% (100 MG) ONE (14:50)
[2021-06-06] MEDS ORDERED: diPHENhydraMINE 25 mg TAB PO PRN (15:49)
[2021-06-06] MEDS ORDERED: diPHENhydraMINE IV 50 MG/ML 1 ml VIAL (BENADRYL) IV PRN (15:49)
[2021-06-06] MEDS ORDERED: Magnesium Hydroxide LIQ 30 ML UDC PO PRN (15:49)
[2021-06-06] MEDS ORDERED: Ondansetron ODT 4 mg TAB 4 MG TAB PO PRN (15:49)
[2021-06-06] MEDS ORDERED: Lactulose 30 ml UDC PO PRN (15:49)
[2021-06-06] MEDS ORDERED: Scopolamine 1 mg/72hr PATCH TRANSDERM SCH (18:00)
[2021-06-06] MEDS ORDERED: Ondansetron 4 mg VIAL 2 MG/ML 2 ml VIAL ONE (19:01)
[2021-06-06] MEDS: Lactated Ringers 1000 ml BAG 1,000 ML IV SCH (19:15)
[2021-06-06] MEDS: Magnesium Hydroxide LIQ 30 ML UDC PO SCH (21:54)
[2021-06-07] MEDS: ceFAZolin 1 GM ADVAN 1 GM in NS 0.9% 50 ML 50 ML IVPB SCH ×3 (00:34→16:00)
[2021-06-07] MEDS: Lactated Ringers 1000 ml BAG 1,000 ML IV SCH (05:59)
[2021-06-07 06:13] LABS: Hematocrit 29 % (35-47); Hemoglobin 9.9 g/dL (12.0-16.0); Mean Platelet Volume 8.6 fL (7.4-10.4); Platelet Count 162 10^3/uL (150-450)
[2021-06-07 06:35] LABS: Calcium 8.5 mg/dL (8.6-10.3); Potassium 3.9 mmol/L (3.5-5.0)
[2021-06-07] MEDS: Vitamin THERAPEUTIC TAB PO SCH (07:50)
[2021-06-07] MEDS: Magnesium Hydroxide LIQ 30 ML UDC PO SCH ×2 (07:51→21:13)
[2021-06-07] MEDS ORDERED: HYDROcodone/ACETAMIN 5/325 mg TAB PO PRN (08:09)
[2021-06-07] MEDS ORDERED: Valsartan/HCTZ 80/12.5(NF) TAB PO SCH (09:00)
[2021-06-08 04:43] LABS: Hematocrit 26 % (35-47); Hemoglobin 9.3 g/dL (12.0-16.0); Mean Platelet Volume 8.4 fL (7.4-10.4); Platelet Count 167 10^3/uL (150-450)
[2021-06-08 07:45] VITALS: BP 122/76
[2021-06-08] MEDS: Magnesium Hydroxide LIQ 30 ML UDC PO SCH (08:54)
[2021-06-08] MEDS: Vitamin THERAPEUTIC TAB PO SCH (08:55)
== END 2021-06-08 11:15 | disposition home or self-care (01) | DRG 470 ==
LOC: AA 11:54 → SUATTDRO 11:54 → SSU 18:35
PROVIDERS: ADMIT Orthopaedic Surgery Adult Reconstructive Orthopaedic Surgery; ATTEND Orthopaedic Surgery Adult Reconstructive Orthopaedic Surgery

== ENCOUNTER 2021-06-09 11:21 | Observation (INO) ==
[2021-06-09] MEDS ORDERED: NS 0.9% 1000 ml BAG 1,000 ML IV ONE (12:06)
[2021-06-09 13:00] LABS: ABS Lymphocytes 1.2 10^3/ul (1.0-4.8); ABS Monocytes 1.1 10^3/ul (0-0.8); ABS Neutrophils 9.9 10^3/ul (1.5-7.7); Eosinophil % 0.2 %; Hematocrit 24 % (35-47); Lymphocyte % 9.9 %; Mean Corpuscular HGB Conc 34 g/dL (31-36); Mean Corpuscular Hemoglobin 30 pg (27-31); Mean Corpuscular Volume 89 fL (80-97); Mean Platelet Volume 8.5 fL (7.4-10.4); Platelet Count 192 10^3/uL (150-450); Red Blood Count 2.67 10^6 /uL (3.70-4.87); Red Cell Distribution Width 13 % (10-15); White Blood Count 12.3 10^3/uL (3.5-10.8)
[2021-06-09 13:02] LABS: Urine Appearance Clear; Urine Bilirubin Negative (Negative); Urine Blood 1+ (Negative); Urine Color Yellow; Urine Glucose Negative (Negative); Urine Ketones Negative (Negative); Urine Nitrite Negative (Negative); Urine Protein Negative (Negative); Urine Specific Gravity 1.008 (1.002-1.030); Urine Urobilinogen Negative (Negative)
[2021-06-09 13:20] LABS: Urine Bacteria Absent (Absent); Urine Red Blood Cell Trace(0-2/hpf) (Absent); Urine White Blood Cell Trace(0-5/hpf) (Absent)
[2021-06-09 13:25] LABS: Potassium 3.5 mmol/L (3.5-5.0); eGFR CKD-EPI 91.7 (>60)
[2021-06-09] MEDS ORDERED: HYDROcodone/ACETAMIN 5/325 mg TAB PO PRN (14:31)
[2021-06-09 15:00] LABS: Corrected Retic Count 0.7 % (0.5-1.5); Hematocrit for Retic CNT 21 % (35-47); Immature Retic Fraction 0.45; RBC Retic Count 2.33 10^6/uL (3.70-4.87)
[2021-06-09] MEDS ORDERED: Iohexol 350 (CONTRAST) 500 ML MDV IV ONE (15:02)
[2021-06-09 15:04] LABS: INR 1.56 (0.86-1.15)
[2021-06-09 15:31] LABS: Potassium 3.6 mmol/L (3.5-5.0)
[2021-06-09 15:32] LABS: Albumin 2.9 g/dL (3.2-5.2); Albumin/Globulin Ratio 1.9 (1-3); Calcium 8.5 mg/dL (8.6-10.3); Globulin 1.5 g/dL (2-4); Total Bilirubin 0.9 mg/dL (0.2-1.0); Total Protein 4.4 g/dL (6.4-8.9); eGFR CKD-EPI 93.4 (>60)
[2021-06-09] MEDS ORDERED: NS 0.9% 500 ml BAG 500 ML IV ONE (17:33)
[2021-06-09 17:36] LABS: Ferritin 117.5 ng/mL (11-307)
[2021-06-09 20:31] LABS: Hematocrit 20 % (35-47); Hemoglobin 7.1 g/dL (12.0-16.0)
[2021-06-09 21:03] LABS: Calcium 8.3 mg/dL (8.6-10.3); Potassium 3.6 mmol/L (3.5-5.0); eGFR CKD-EPI 84.8 (>60)
[2021-06-10 03:44] LABS: ABS Eosinophils 0.1 10^3/ul (0-0.6); ABS Monocytes 0.7 10^3/ul (0-0.8); ABS Neutrophils 6.3 10^3/ul (1.5-7.7); Eosinophil % 1.4 %; Hematocrit 26 % (35-47); Hemoglobin 8.8 g/dL (12.0-16.0); Lymphocyte % 12.8 %; Mean Corpuscular HGB Conc 34 g/dL (31-36); Mean Corpuscular Hemoglobin 31 pg (27-31); Mean Corpuscular Volume 89 fL (80-97); Mean Platelet Volume 8.5 fL (7.4-10.4); Platelet Count 198 10^3/uL (150-450); Red Blood Count 2.87 10^6 /uL (3.70-4.87); Red Cell Distribution Width 14 % (10-15); White Blood Count 8.1 10^3/uL (3.5-10.8)
[2021-06-10 04:09] LABS: Calcium 8.4 mg/dL (8.6-10.3); Potassium 3.5 mmol/L (3.5-5.0)
[2021-06-10] MEDS ORDERED: CMCS: Meloxicam 7.5 mg TAB (NF) PO SCH (09:00)
[2021-06-10] MEDS: Cholecalciferol (VIT D3) 1,000 unit TAB PO SCH (10:46)
[2021-06-10] MEDS: Calcium/Vitamin D TAB 250/125 TAB PO SCH (10:48)
[2021-06-10] MEDS ORDERED: Senna TAB 8.6 mg TAB PO PRN (14:23)
[2021-06-10] MEDS ORDERED: Magnesium Hydroxide LIQ 30 ML UDC PO PRN (14:23)
[2021-06-10] MEDS ORDERED: Polyethylene Glycol 3350 17 GM PACKET PO PRN (14:23)
[2021-06-11 05:58] LABS: ABS Eosinophils 0.1 10^3/ul (0-0.6); ABS Lymphocytes 1.3 10^3/ul (1.0-4.8); ABS Monocytes 0.6 10^3/ul (0-0.8); ABS Neutrophils 4.8 10^3/ul (1.5-7.7); Eosinophil % 1.8 %; Hematocrit 24 % (35-47); Hemoglobin 8.2 g/dL (12.0-16.0); Mean Corpuscular HGB Conc 34 g/dL (31-36); Mean Corpuscular Hemoglobin 31 pg (27-31); Mean Corpuscular Volume 89 fL (80-97); Mean Platelet Volume 8.1 fL (7.4-10.4); Platelet Count 245 10^3/uL (150-450); Red Blood Count 2.69 10^6 /uL (3.70-4.87); Red Cell Distribution Width 14 % (10-15); White Blood Count 6.8 10^3/uL (3.5-10.8)
[2021-06-11 06:23] LABS: Calcium 8.5 mg/dL (8.6-10.3); Potassium 3.8 mmol/L (3.5-5.0); eGFR CKD-EPI 95.7 (>60)
[2021-06-11 06:46] LABS: Folate 14.6 ng/mL (5.90-24.80)
[2021-06-11] MEDS: Calcium/Vitamin D TAB 250/125 TAB PO SCH (09:36)
[2021-06-11] MEDS: Cholecalciferol (VIT D3) 1,000 unit TAB PO SCH (09:37)
[2021-06-11 11:30] VITALS: BP 125/74
[2021-06-12 15:28] LABS: Kappa Free Light Chain 1.36 mg/dL; Lambda Free Light Chain, S 1.32 mg/dL
[2021-06-13 00:08] LABS: Albumin 2.2 g/dL (3.4-4.7); Albumin/Globulin Ratio 0.88; Gamma Globulin 0.4 g/dL (0.6-1.6); Total Protein(PEP) 4.7 g/dL (6.3 - 7.9)
== END 2021-06-11 14:40 | disposition home or self-care (01) ==
LOC: EDHOLD 11:21 → ED 11:21 → SUATTDRO 15:47 → SSU 18:55
PROVIDERS: ADMIT Nurse Practitioner; ATTEND Internal Medicine